=== PATIENT | male | born 1995 | race Hispanic/Latino ===

== ENCOUNTER 2016-09-25 09:28 | Emergency (ER) | payer OTHER ==
[~2016-09-25] VITALS: Ht 175.3 cm; Wt 86.2 kg
--- NOTE | 2016-09-25 09:51 | ED GI/GU/ABDOMINAL COMPLAINT ---
History of Present Illness General Chief Complaint: Abdominal Pain/Flank Pain Stated Complaint: ABD PAIN Source: patient, family Exam Limitations: language barrier Vital Signs & Intake/Output Vital Signs & Intake/Output Vital Signs Date Time Temp Pulse Resp B/P B/P Pulse O2 O2 Flow FiO2 Mean Ox Delivery Rate 09/25 1137 97.0 90 110/70 09/25 0937 97.2 71 16 120/73 97 Room Air Allergies Coded Allergies: No Known Allergies (09/25/16) Reconcile Medications Pantoprazole Sodium (Protonix) 40 MG TABLET. 1 TAB PO DAILY GERD Triage Note: PT HAVING DIFFUSE ABD PAIN SINCE LAST EVENING. PT HAS BEEN TAKING TUMS, GINGERALE NOTHING HELPING WITH THE PAIN. PT ALSO TOOK4 PEPTO BISMOL TABS. PT HAD NAUSEA BUT DID NOT VOMIT. Triage Nurses Notes Reviewed? yes Onset: Abrupt Duration: day(s): (1) Timing: multiple episodes today Location: epigastric, right upper quadrant Radiation: no radiation Activities at Onset: none Prior Abdominal Problems: none No Modifying Factors: none Associated Symptoms: NAUSEA HPI: This is a 21-year-old healthy male who presents to the ER with his significant other for chief complaint of epigastric abdominal pain that started last night. She states he had some chills epigastric pain and nausea last night. No vomiting or diarrhea. She tried giving him for doses of Pepto-Bismol without any relief. Pain does not radiate. He is in epigastric and right upper quadrant region. It patient reports it is crampy in nature. No associated blood. No history of peptic ulcer disease or gastritis. Occasional alcohol but did not drink on Sunday. Nothing is making his symptoms any better or worse. Past History Travel History Traveled to [place] past 21 day No Medical History Any Pertinent Medical History? none Surgical History Surgical History: none Psychosocial History What is your primary language [place] Tobacco Use: Current Daily Use Daily Tobacco Use Amount/Type: => 5 Cigarettes daily ETOH Use: occasional use Illicit Drug Use: denies illicit drug use Family History Hx Contributory? No Review of Systems Review of Systems Constitutional: Reports: chills. Denies: fever. EENTM: Reports: no symptoms. Respiratory: Reports: no symptoms. Cardiovascular: Reports: no symptoms. GI: Reports: abdominal pain, nausea. Denies: diarrhea, vomiting. Genitourinary: Denies: discharge, dysuria, frequency. Musculoskeletal: Denies: back pain. Skin: Reports: no symptoms. Neurological/Psychological: Reports: no symptoms. Hematologic/Endocrine: Denies: bruising, bleeding, polyuria, polydipsia. Immunologic/Allergic: Denies: splenectomy. All Other Systems: Reviewed and Negative Physical Exam Physical Exam General Appearance: well developed/nourished, alert, awake, anxious, mild distress Head: atraumatic, normal appearance Eyes: Bilateral: normal appearance, PERRL, EOMI. Ears, Nose, Throat, Mouth: hearing grossly normal, moist mucous membrane Neck: normal inspection, supple, full range of motion Respiratory: normal breath sounds, chest non-tender, no respiratory distress Cardiovascular: regular rate/rhythm Peripheral Pulses: 2+ radial (R), 2+ radial (L) Gastrointestinal: normal bowel sounds, soft, tenderness (EPIGASTRIC/RUQ), NEGATIVE MURPHYS Extremities: normal range of motion Neurologic/Psych: no motor/sensory deficits, awake, alert, oriented x 3 Skin: intact Core Measures ACS in differential dx? No Severe Sepsis Present: No Septic Shock Present: No Progress Differential Diagnosis: cholecystitis, pancreatitis, peptic ulcer, PUD/GERD, UTI /pyelo Plan of Care: Orders Procedure Date/time Status LACTIC ACID 09/25 1238 Active Add-on Test (ER Only) 09/25 0955 Active URINALYSIS 09/25 0955 Complete LIPASE 09/25 0938 Complete LACTIC ACID 09/25 0938 Complete COMPREHENSIVE METABOLIC PANEL 09/25 0938 Complete CBC WITHOUT DIFFERENTIAL 09/25 937 Complete AMYLASE 09/25 0938 Complete Laboratory Tests 09/25/16 1118: Urine Color STRAW, Urine Clarity CLEAR, Urine pH 7.0, Ur Specific [place] <= 1.005, Urine Protein NEG, Urine Ketones NEG, Urine Nitrite NEG, Urine Bilirubin NEG, Urine Urobilinogen 0.2, Ur Leukocyte Esterase NEG, Ur Microscopic SEDIMENT EXAMINED, Urine RBC 1-3, Urine Hemoglobin TRACE-INTACT H, Urine Glucose NEG 09/25/16 0950: Anion Gap 11, Estimated GFR > 60, BUN/Creatinine Ratio 10.0, Glucose 120 H, Lactic Acid 1.1, Calcium 9.6, Total Bilirubin 0.7, AST 26, ALT 43, Alkaline Phosphatase 99, Total Protein 8.1, Albumin 4.8, Globulin 3.3, Albumin/Globulin Ratio 1.5, Amylase 77, Lipase 63, CBC w Diff NO MAN DIFF REQ, RBC 5.55, MCV 85.1 , MCH 28.5, RDW 14.6 H, MPV 9.6, Gran % 84.7 H, Lymphocytes % 9.4 L, Monocytes % 5.4, Eosinophils % 0.2, Basophils % 0.3, Absolute Granulocytes 12.1 H, Absolute Lymphocytes 1.4, Absolute Monocytes 0.8 H, Absolute Eosinophils 0, Absolute Basophils 0, PUBS MCHC 33.4 LABS SENT. GI COCKTAIL, PROTONIX ORDERED. NO RELIEF WITH GI COCKTAIL. IV FLUIDS, BENTYL ORDERED. CT SCAN ORDERED. CT SCAN NEGATIVE. PATIENT IMPROVED AFTER IV MEDS. RX FOR PROTONIX GIVEN. WILL FOLLOW UP WITH PCP. (DANIEL HOGUE,TEN) Diagnostic Imaging: Viewed by Me: CT Scan. Discussed w/RAD: CT Scan. Radiology Impression: PATIENT: JONI MCKEON PRESENT AGE: 21 PATIENT ACCOUNT NO: [id number] : 95 LOCATION: [facility] ORDERING PHYSICIAN: TEN SANCHEZ MD SERVICE DATE: 09/25/16 EXAM TYPE: CAT - CT ABD & PELVIS W IV CONTRAST EXAMINATION: CT ABDOMEN AND PELVIS WITH CONTRAST CLINICAL INFORMATION: Severe epigastric abdominal pain. Nausea. COMPARISON: CT abdomen and pelvis of 03/26/2013 and 05/08/2012 from [facility]. TECHNIQUE: Multidetector volumetric imaging was performed of the abdomen and pelvis before and after the IV administration of 95 mL of Optiray 320 intravenous contrast. Sagittal and coronal reformatted images were obtained on the technologist's workstation. DLP: 324.87 mGy-cm FINDINGS: LUNG BASES: The visualized lung bases are unremarkable. LIVER, GALLBLADDER, AND BILIARY TREE: The liver is normal in size, shape, and attenuation. No focal hepatic lesion or biliary ductal dilatation is present. The gallbladder is unremarkable with no evidence of radiopaque gallstones, gallbladder wall thickening, or obvious pericholecystic inflammatory changes. PANCREAS: Normal. No evidence of peripancreatic stranding or fluid. No pancreatic ductal dilatation. SPLEEN: Unremarkable. ADRENAL GLANDS: Unremarkable. KIDNEYS AND URETERS: The kidneys are normal in size, shape, and attenuation. No hydronephrosis, hydroureter, or calculi seen. No perinephric stranding. BLADDER: Unremarkable. GASTROINTESTINAL TRACT: The stomach is adequately distended and appears unremarkable. The small bowel is unremarkable. Isolated diverticula of the descending colon are noted without acute diverticulitis. No evidence of colonic wall thickening or pericolonic fat stranding. PERITONEAL CAVITY: No evidence of free intraperitoneal air or fluid. No inflammatory changes or nodularity is seen in the omentum and mesentery. ABDOMINAL WALL: A tiny fat-containing umbilical hernia is noted. LYMPH NODES: No evidence of pathologically enlarged lymph nodes. VASCULAR: Unremarkable. PELVIC VISCERA: Unremarkable. OSSEOUS STRUCTURES: Stable. Bilateral L5 pars interarticularis defects are noted with minimal grade 1 anterolisthesis of L5 on S1. No acute or suspicious osseous abnormality. IMPRESSION: 1. No CT evidence of pancreatitis. 2. No free intraperitoneal air or fluid. Unremarkable CT appearance of the stomach and duodenum. 3. No acute or other significant abnormality is identified to explain patient's symptoms. 4. Isolated colonic diverticula without acute diverticulitis. DICTATED BY: JASIEL CHUNG MD DATE/TIME DICTATED:09/25/161139 CHILD PSYCHOLOGIST:MILI DATE/TIME TRANSCRIBED:09/25/161139 CONFIDENTIAL, DO NOT COPY WITHOUT APPROPRIATE AUTHORIZATION. <Electronically signed in Other Vendor System> SIGNED BY: JASIEL CHUNG MD 09/25/16 1159 Initial ED EKG: none Departure Departure Time of Disposition: 1218 Disposition: HOME OR SELF CARE Condition: Stable Clinical Impression Primary Impression: GERD (gastroesophageal reflux disease) Referrals: RICHARD HOGUE,RAMBO Additional Instructions: Take the Protonix as directed and follow-up with your doctor in the office or the one listed here. Please follow bland diet as discussed. Return as needed. Departure Forms: Customer Survey General Discharge Information Prescriptions: Current Visit Scripts Pantoprazole Sodium (Protonix) 1 TAB PO DAILY #14 TAB
[2016-09-25 10:02] LABS: ABSOLUTE BASOPHIL COUNT 0 /CUMM (0.0-0.2); ABSOLUTE EOSINOPHIL COUNT 0 /CUMM (0.0-0.7); ABSOLUTE GRANULOCYTE CT 12.1 /CUMM (1.4-6.5); ABSOLUTE LYMPH COUNT 1.4 /CUMM (1.2-3.4); ABSOLUTE MONOCYTE COUNT 0.8 /CUMM (0.10-0.60); BASOPHIL % 0.3 % (0.0-2.0); EOSINOPHIL % 0.2 % (0-5); HEMATOCRIT 47.2 % (42-52); MEAN CORPUSCULAR HGB 28.5 PG (27.0-31.0); MEAN CORPUSCULAR HGB CONC 33.4 G/DL (33.0-37.0); MEAN CORPUSCULAR VOLUME 85.1 FL (80.0-94.0); MEAN PLATELET VOLUME 9.6 FL (7.4-10.4); PLATELET COUNT 260 /CUMM (130-400); RBC DISTRIBUTION WIDTH 14.6 % (11.5-14.5); RED BLOOD CELL CT 5.55 /CUMM (4.70-6.10); WHITE BLOOD CELL COUNT 14.3 /CUMM (4.8-10.8)
[2016-09-25 10:22] LABS: GRANULOCYTE % 84.7 % (42.2-75.2)
[2016-09-25 11:37] VITALS: BP 110/70
--- NOTE | 2016-09-25 11:59 | CT SCAN REPORT ---
EXAMINATION: CT ABDOMEN AND PELVIS WITH CONTRAST CLINICAL INFORMATION: Severe epigastric abdominal pain. Nausea. COMPARISON: CT abdomen and pelvis of 03/26/2013 and 05/08/2012 from [facility]. TECHNIQUE: Multidetector volumetric imaging was performed of the abdomen and pelvis before and after the IV administration of 95 mL of Optiray 320 intravenous contrast. Sagittal and coronal reformatted images were obtained on the technologist's workstation. DLP: 324.87 mGy-cm FINDINGS: LUNG BASES: The visualized lung bases are unremarkable. LIVER, GALLBLADDER, AND BILIARY TREE: The liver is normal in size, shape, and attenuation. No focal hepatic lesion or biliary ductal dilatation is present. The gallbladder is unremarkable with no evidence of radiopaque gallstones, gallbladder wall thickening, or obvious pericholecystic inflammatory changes. PANCREAS: Normal. No evidence of peripancreatic stranding or fluid. No pancreatic ductal dilatation. SPLEEN: Unremarkable. ADRENAL GLANDS: Unremarkable. KIDNEYS AND URETERS: The kidneys are normal in size, shape, and attenuation. No hydronephrosis, hydroureter, or calculi seen. No perinephric stranding. BLADDER: Unremarkable. GASTROINTESTINAL TRACT: The stomach is adequately distended and appears unremarkable. The small bowel is unremarkable. Isolated diverticula of the descending colon are noted without acute diverticulitis. No evidence of colonic wall thickening or pericolonic fat stranding. PERITONEAL CAVITY: No evidence of free intraperitoneal air or fluid. No inflammatory changes or nodularity is seen in the omentum and mesentery. ABDOMINAL WALL: A tiny fat-containing umbilical hernia is noted. LYMPH NODES: No evidence of pathologically enlarged lymph nodes. VASCULAR: Unremarkable. PELVIC VISCERA: Unremarkable. OSSEOUS STRUCTURES: Stable. Bilateral L5 pars interarticularis defects are noted with minimal grade 1 anterolisthesis of L5 on S1. No acute or suspicious osseous abnormality. IMPRESSION: 1. No CT evidence of pancreatitis. 2. No free intraperitoneal air or fluid. Unremarkable CT appearance of the stomach and duodenum. 3. No acute or other significant abnormality is identified to explain patient's symptoms. 4. Isolated colonic diverticula without acute diverticulitis.
[2016-09-25] MEDS ORDERED: PROTONIX40 M3 PO (12:20)
== END 2016-09-25 12:26 ==
LOC: ERH 09:28
PROVIDERS: Emergency Medicine
DX: K21.9 Gastro-esophageal reflux disease without esophagitis (principal)
CPT/HCPCS: 74177; 81001